=== PATIENT | female | born 1960 | race Two or more races ===

== ENCOUNTER 2016-04-06 21:22 | Emergency (ER) | payer MEDICAID ==
[~2016-04-06] VITALS: Ht 152.4 cm; Wt 69.0 kg
[2016-04-06 21:35] VITALS: Ht 152.4 cm; Wt 69.0 kg
[2016-04-06] MEDS ORDERED: IBUPROFEN 200 MG TAB PO ONE (23:30)
--- NOTE | 2016-04-06 23:30 | ERD ---
ER Documentation Chief Complaint Date/Time DATE: 04/06/16 TIME: 23:28 Chief Complaint pt reports r wrist pain after fall. swelling to r wrist HPI 55-year-old female presents here in emergency department for complaints of right wrist pain and swelling after falling and landing on it today. Patient describes the pain as throbbing pain, 8/10 scale, is worse upon movement accompanied with swelling. Patient denies any numbness or tingling. Patient denies any deformity. Patient did not take any medications to help with symptoms ROS All systems reviewed and are negative except as per history of present illness. Medications Home Meds Reported Medications [none] Unknown Strength No Conflict Check 04/06/16 Allergies Allergies: Coded Allergies: No Known Allergy (Unverified , 04/06/16) PMhx/Soc Hx Miscellaneous Medical Probl: Yes (prediabetes) FmHx Family History: diabetes, other (HTN) Physical Exam Vitals Vital Signs Date Time Temp Pulse Resp B/P Pulse Ox O2 Delivery O2 Flow Rate FiO2 04/06/16 21:35 99.0 73 18 139/65 99 Physical Exam GENERAL: The patient is well developed and appropriate for usual state of health, in no apparent distress. CHEST: Clear to auscultation bilaterally. There are no rales, wheezes or rhonchi. HEART: Regular rate and rhythm. No murmurs, clicks, rubs or gallops. No S3 or S4. ABDOMEN: Soft, nontender and nondistended. Good bowel sounds. No rebound or guarding. No gross peritonitis. No gross organomegaly or masses. No Yu sign or McBurney point tenderness. BACK: No midline or flank tenderness. EXTREMITIES: Tenderness on palpation and radial and ulnar aspect of the wrist area, male in mild swelling noted, no deformity noted, limitation movement of the joint because of pain and swelling. Equal pulses bilaterally. Full range of motion of other joints of the body. Grossly neurovascularly intact. NEURO: Alert and oriented. Cranial nerves 2-12 intact. Motor strength in all 4 extremities with 5/5 strength. Sensation grossly intact. Normal speech and gait. SKIN: There is no apparent rash or petechia. The skin is warm and dry. HEMATOLOGIC AND LYMPHATIC: There is no evidence of excessive bruising or lymphedema. No gross cervical, axillary, or inguinal lymphadenopathy. Results 24 hrs Current Medications Medications (Trade) Dose Ordered Sig/Enio Route PRN Reason Start Time Stop Time Status Last Admin Dose Admin Ibuprofen (Motrin) 400 mg ONCE ONCE PO 04/06/16 23:30 04/06/16 23:31 DC Patient was given medication for pain here in emergency department, after treatment, patient verbalized feeling much better. Patient's pain is improved. PROCEDURE: XR wrist. CLINICAL INDICATION: Trauma. TECHNIQUE: AP, lateral and oblique views of the right wrist was obtained. COMPARISON: There are no similar studies submitted for comparison. FINDINGS: There is no acute fracture or dislocation. No destructive osseous lesions are seen. The joint spaces are unremarkable. IMPRESSION: No acute fracture or dislocation. RPTAT: HIKT .Garret Raygoza MD, MD Date Time Electronically viewed and signed by .Garret Raygoza MD, MD on 04/07/2016 01:28 .T/ After receiving patients xray report, a velcro wrist support was applied on the patients right wrist. After application of the splint, patient has intact sensation and circulation on distal area of the affected joint. Patient does not complain of numbness or tingling after application of the splint. Patient tolerated procedure well. A sling was given to use afterwards. Procedures/MDM Medical Decision Making: Patient's pain is most likely consistent with a contusion or a sprain. There is no suspicion for neurovascular compromise. Patient has intact sensation and circulation of the affected extremity. There is low suspicion for septic arthritis. Patient does not have any fever. Radiology exams of the affected area does not show any fracture or dislocation. Disposition: Home. Patient is given prescription for ibuprofen for pain. Patient was advised to elevate the affected area and apply ice on affected area. Patient was advised that if symptoms are worse, numbness, tingling, high fever, unable to move joint, worsening symptoms, to return to emergency department immediately. Otherwise, patient is advised to follow up with the primary care doctor in 5-7 days for reevaluation of symptoms. Departure Diagnosis: Primary Impression: Wrist sprain Encounter type: initial encounter Laterality: right Qualified Code: S63.501A - Wrist sprain, right, initial encounter Condition: Stable Patient Instructions: Wrist Sprain Additional Instructions: After receiving patients xray report, a velcro wrist support was applied on the patients right wrist. After application of the splint, patient has intact sensation and circulation on distal area of the affected joint. Patient does not complain of numbness or tingling after application of the splint. Patient tolerated procedure well. A sling was given to use afterwards. JEREL GORDON NP Apr 06, 2016 23:30
--- NOTE | 2016-04-07 01:28 | RADRPT ---
PROCEDURE: XR wrist. CLINICAL INDICATION: Trauma. TECHNIQUE: AP, lateral and oblique views of the right wrist was obtained. COMPARISON: There are no similar studies submitted for comparison. FINDINGS: There is no acute fracture or dislocation. No destructive osseous lesions are seen. The joint spaces are unremarkable. IMPRESSION: No acute fracture or dislocation. RPTAT: HIKT .Garret Raygoza MD, MD Date Time Electronically viewed and signed by .Garret Raygoza MD, on 04/07/2016 01:28 .T/
[2016-04-07] MEDS ORDERED: TRAM50TA2 PO (01:34)
[2016-04-07] MEDS ORDERED: IBUP-1542 PO (01:34)
[2016-04-07 01:44] VITALS: BP 132/68; PULSE 75; RESP 18; TEMP 98.9
== END 2016-04-07 01:44 | disposition home or self-care (01) ==
LOC: FTE 21:22
DX: S63.501A Unspecified sprain of right wrist, initial encounter (principal); I10 Essential (primary) hypertension; W18.39XA Other fall on same level, initial encounter; Y92.9 Unspecified place or not applicable
CPT/HCPCS: 29125; 73110; Z7502; Z7610

== ENCOUNTER 2016-06-18 05:36 | Day surgery (SDC) | payer OTHER ==
[~2016-06-18] VITALS: Ht 149.9 cm; Wt 68.0 kg
[~2016-06-18 05:36] MED LIST: IBUP-1542 PO; TRAM50TA2 PO
[2016-06-18 06:36] VITALS: Ht 149.9 cm; Wt 68.0 kg
[2016-06-18] MEDS ORDERED: ACET-2158 GTB (06:44)
[2016-06-18 07:20] VITALS: BP 139/70; PULSE 69; RESP 19
[2016-06-18] MEDS ORDERED: MIDAZOLAM 1 MG/ML 2 ML INJ ONE (07:38)
[2016-06-18] MEDS ORDERED: FENTAnyl 50 MCG/ML VIAL ONE (07:38)
--- NOTE | 2016-06-18 07:56 | GILP ---
DATE OF PROCEDURE: NAME OF PROCEDURES: Esophagogastroduodenoscopy and biopsy. SURGEON: Shad Argueta MD PREOPERATIVE DIAGNOSES: 1. Abdominal pain. 2. Dysphagia. POSTOPERATIVE DIAGNOSES: 1. Hiatal hernia. 2. Gastroesophageal reflux disease. 3. Gastritis with erosions. 4. Gastric mucosal biopsies were taken for Helicobacter pylori test. INDICATION FOR THE PROCEDURE: Ms. Cr Summers is a 56-year-old female patient who had upp er abdominal pain, not responding to therapy. She also had dysphagia. The patient was scheduled fo r endoscopic examination for further evaluation. The procedure and possible complications were well explained to the patient. The patient understood and consented to the procedure. DESCRIPTION OF PROCEDURE: Under the influence of fentanyl and Versed, the gastroscope was carefully introduced into the esophagus and under direct vision, it was advanced to the stomach and through t he pylorus into the duodenal bulb and descending duodenum. FINDINGS: ESOPHAGUS: The patient had hiatal hernia and gastroesophageal reflux disease. STOMACH: She had gastritis with erosions. Gastric mucosal biopsies were taken for H pylori test. DUODENUM: Normal. The patient tolerated the procedure very well and there was no complication from the procedure. At the end of the procedure, she was awake with stable vital signs and she was discharged home to the count includes the [facility] of her family. IMPRESSION: 1. Hiatal hernia. 2. Gastroesophageal reflux disease. 3. Gastritis with erosions. 4. Gastric mucosal biopsies were taken for Helicobacter pylori test. PLAN: 1. Omeprazole 40 mg p.o. every morning. 2. Await H pylori test report. Dictated By: SHAD CHAUDHRY/ROSANA Conf#: [id number] DID#: [id number]
[2016-06-18 08:12] VITALS: BP 131/76; PULSE 75; RESP 19
--- NOTE | 2016-06-19 07:44 | CONS ---
DATE OF ADMISSION: 06/18/2016 DATE OF CONSULTATION: TYPE OF CONSULTATION: Preoperative Gastroenterology Dear Dr. Brandt: I thank you very much for this kind referral. HISTORY OF PRESENT ILLNESS: Ms. Cr Lerner is a 56-year-old female patient who has been re ferred to me for further evaluation of dysphagia. The patient also complains of epigastric pain. T here is no past history of esophageal stricture or neoplasm. Her appetite has been good and she is not losing any weight. The patient also complains of epigastric pain. She has been taking ibuprofe n. There is no past history of peptic ulcer disease. There is no history of gallstones. She does not have any fever, chills or jaundice. There is no history of liver disease. The patient also com plains of change in the bowel habit with constipation. She has been taking Colace. There is no pas t history of colon neoplasm. The patient never had a screening colonoscopy. She is not a hypertens roger or diabetic. She does not have any heart disease or lung problem. There is no history of kidne y disease. SOCIAL HISTORY: She is a nonsmoker. She does not abuse alcohol. FAMILY HISTORY: Negative for gastrointestinal tract neoplasm. ALLERGIES: THERE IS NO HISTORY OF SIGNIFICANT DRUG ALLERGY. MEDICATIONS: 1. Colace. 2. Ibuprofen. PHYSICAL EXAMINATION VITAL SIGNS: She is 5 feet tall and she weighs 146 pounds. HEART: Examination of the heart reveals normal first and second heart sounds. LUNGS: Clear. ABDOMEN: Soft without any distention. Liver and spleen are not palpable. There are no masses. Th ere is no focal tenderness. Normal bowel sounds are heard. CENTRAL NERVOUS SYSTEM: Does not reveal any focal neurological deficit. IMPRESSION: 1. Dysphagia. 2. Upper abdominal pain. 3. The patient has been taking ibuprofen. 4. Change in the bowel habit with constipation. 5. The patient never had a screening colonoscopy. PLAN: 1. Endoscopic examination for further evaluation of dysphagia and upper abdominal pain. 2. Screening colonoscopy at a later date. The procedures and possible complications are well explained to the patient. She understands and co nsents to the procedures. I thank you once again. With warmest personal regards, Dictated By: SHAD CHAUDHRY/ROSANA Conf#: [id number] [facility]#: [id number]
== END 2016-06-18 12:01 | disposition home or self-care (01) ==
LOC: GIL 05:36
PROVIDERS: ATTEND Internal Medicine Gastroenterology
DX: K44.9 Diaphragmatic hernia without obstruction or gangrene (principal); K21.9 Gastro-esophageal reflux disease without esophagitis; K29.60 Other gastritis without bleeding
CPT/HCPCS: 87081; J2250; J3010

== ENCOUNTER 2016-09-10 08:15 | Day surgery (SDC) | payer OTHER ==
[~2016-09-10] VITALS: Ht 152.4 cm; Wt 67.0 kg
[~2016-09-10 08:15] MED LIST changes: +ACET-2158 GTB; -IBUP-1542 PO; -TRAM50TA2 PO
[2016-09-10 08:49] VITALS: Ht 152.4 cm; Wt 67.0 kg
[2016-09-10] MEDS ORDERED: OMEPRAZOLE PO (09:03)
[2016-09-10] MEDS ORDERED: VITAMINS (09:03)
[2016-09-10 09:22] VITALS: BP 105/61; PULSE 65; RESP 19
[2016-09-10] MEDS ORDERED: FENTAnyl 50 MCG/ML VIAL ONE (09:49)
[2016-09-10] MEDS ORDERED: MIDAZOLAM 1 MG/ML 2 ML INJ ONE (09:49)
[2016-09-10 10:15] VITALS: BP 98/57; PULSE 60; RESP 14
--- NOTE | 2016-09-15 08:10 | GILP ---
DATE OF PROCEDURE: PROCEDURE PERFORMED: Colonoscopy. SURGEON: Dr. Argueta. PREOPERATIVE DIAGNOSIS: Screening colonoscopy. POSTOPERATIVE DIAGNOSES: 1. Colonoscopy all the way to the cecum. 2. Internal hemorrhoids. 3. No colon neoplasm was identified. INDICATION: Ms. Cr Lee is a 56-year-old female patient who was scheduled for screening colonoscopy. The procedure and possible complications were well explained to the patient. The patient understood and consented to the procedure. DESCRIPTION OF PROCEDURE: Under influence of fentanyl and Versed, the colonoscope was carefully introduced in the rectum and under direct vision, it was advanced all the way to the cecum. FINDINGS: 1. The patient had internal hemorrhoids. No colon neoplasm was identified. 2. The patient also had diverticulosis of the colon. She tolerated the procedure very well. There was no complication from the procedure. At the end of procedure, she was awake, with stable vital signs and she was discharged home in the care of her family IMPRESSION: 1. Colonoscopy all the way to the cecum. 2. Diverticulosis of the colon. 3. Internal hemorrhoids. 4. No colon neoplasm was identified. PLAN: 1. High-fiber diet. 2. Screening colonoscopy in 10 years. Dictated By: MD RICHA Huggins/peggy/lc /Document#: [id number] CC: Rogerio Argueta MD;*EndCC*
== END 2016-09-10 17:30 | disposition home or self-care (01) ==
LOC: GIL 08:15
PROVIDERS: ATTEND Internal Medicine Gastroenterology
DX: Z12.11 Encounter for screening for malignant neoplasm of colon (principal); K64.8 Other hemorrhoids
CPT/HCPCS: 45378; J2250; J3010

== ENCOUNTER 2018-07-30 23:31 | Emergency (ER) | payer OTHER ==
[~2018-07-30] VITALS: Ht 152.4 cm; Wt 73.0 kg
[~2018-07-30 23:31] MED LIST changes: -ACET-2158 GTB; +OMEPRAZOLE PO; +VITAMINS
[2018-07-30 23:34] VITALS: BP 145/67; PULSE 66; RESP 18; Ht 152.4 cm; Wt 73.0 kg
[2018-07-31] MEDS ORDERED: HYDR-4011 PO (00:21)
--- NOTE | 2018-07-31 00:23 | ERD ---
ER Documentation Chief Complaint Chief Complaint R SHOULDER PAIN S/P OLD INJURY 1.5 YEARS AGO ROS All systems reviewed and are negative except as per history of present illness. Medications Home Meds Active Scripts Hydrocodone/Acetaminophen ([place] 5-325 Tablet) 1 Each Tablet, 1 EACH PO Q6H PRN for PAIN, #10 TAB Prov:FABRICE OSPINA DO 07/31/18 Reported Medications [Omeprazole] No Conflict Check, PO 09/10/16 [Vitamins] No Conflict Check 09/10/16 Allergies Allergies: Uncoded Allergies: PATIENT NOT SURE WHICH MEDICATION (Allergy, Unknown, 09/10/16) PMhx/Soc History of Surgery: Yes (3 CSECTIONS, LEFT LEG, LEFT EAR) Anesthesia Reaction: No Hx Neurological Disorder: No Hx Respiratory Disorders: No Hx Cardiac Disorders: No Hx Psychiatric Problems: No Hx Miscellaneous Medical Probl: No Hx Alcohol Use: No Hx Substance Use: No Hx Tobacco Use: No Smoking Status: Never smoker Physical Exam Vitals Vital Signs Date Temp Pulse Resp B/P (MAP) Pulse Ox O2 O2 Flow FiO2 Time Delivery Rate 07/30/18 97.1 66 18 145/67 100 23:34 (93) Physical Exam Const: No acute distress Head: Atraumatic Eyes: Normal Conjunctiva ENT: Normal External Ears, Nose and Mouth. Neck: Full range of motion. No meningismus. Resp: Clear to auscultation bilaterally Cardio: Regular rate and rhythm, no murmurs Abd: Soft, non tender, non distended. Normal bowel sounds Skin: No petechiae or rashes Back: No midline or flank tenderness Ext: No cyanosis, or edema Neur: Awake and alert Psych: Normal Mood and Affect Results 24 hrs Current Medications Medications Dose Sig/Enio Start Time Status Last (Trade) Ordered Route PRN Stop Time Admin Dose Reason Admin 6 mg ONCE ONCE 07/31/18 Dexamethasone IM 00:30 07/31/18 (Decadron) 00:31 Departure Diagnosis: Primary Impression: Shoulder pain Chronicity: unspecified Laterality: right Qualified Codes: M25.511 - Pain in right shoulder Condition: Fair Patient Instructions: Shoulder Problems, Rotator Cuff Tear Referrals: COMMUNITY CLINICS YOU HAVE RECEIVED A MEDICAL SCREENING EXAM AND THE RESULTS INDICATE THAT YOU DO NOT HAVE A CONDITION THAT REQUIRES URGENT TREATMENT IN THE EMERGENCY DEPARTMENT. FURTHER EVALUATION AND TREATMENT OF YOUR CONDITION CAN WAIT UNTIL YOU ARE SEEN IN YOUR DOCTORS OFFICE WITHIN THE NEXT 1-2 DAYS. IT IS YOUR RESPONSIBILITY TO MAKE AN APPOINTMENT FOR FOLOW-UP CARE. IF YOU HAVE A PRIMARY DOCTOR --you should call your primary doctor and schedule an appointment IF YOU DO NOT HAVE A PRIMARY DOCTOR YOU CAN CALL OUR PHYSICIAN REFERRAL HOTLINE AT IF YOU CAN NOT AFFORD TO SEE A PHYSICIAN YOU CAN CHOSE FROM THE FOLLOWING [facility] [address] [facility] [address] [facility] [facility] [address] [facility] [address] [facility]. [facility] [address] [facility]. [facility]. [address] Additional Instructions: Call your primary care doctor TOMORROW for an appointment during the next 1-2 days.See the doctor sooner or return here if your condition worsens before your appointment time. Follow up with orthopedic surgery FABRICE OSPINA DO Jul 31, 2018 00:23
[2018-07-31] MEDS ORDERED: DEXAMETHASONE 10 MG/ML 1 ML INJ IM ONE (00:30)
== END 2018-07-31 00:35 | disposition home or self-care (01) ==
LOC: FTE 23:31
DX: M25.511 Pain in right shoulder (principal)
CPT/HCPCS: 96372; 99284; J1100